=== PATIENT | male | born 1970 | race Caucasian/White ===

== ENCOUNTER 2025-06-10 15:59 | Inpatient (IN) | payer MEDICARE, MEDICAID ==
[~2025-06-10] VITALS: Ht 188 cm; Wt 130.6 kg
[~2025-06-10 15:59] MED LIST: LISI-893 PO; OLAN10TA74 PO; PANT-31 PO; QUET200T PO; SIMV-261 PO
[2025-06-10 21:37] VITALS: BP 108/80; PULSE 89; RESP 16; TEMP 98.4; O2SAT 100
[2025-06-10] MEDS ORDERED: INFLUENZA VIRUS VACCINE TVS (6MO+) 2025-26/PF 45 MCG/0.5 ML SYRINGE IM. ONE (22:15)
[2025-06-11 08:55] LABS: PLATELET COUNT (AUTO) 200 K/uL (150-450); RED BLOOD CELL COUNT(AUTO) 5.33 MIL/uL (4.50-5.90); RED CELL DISTRIBUTION WIDTH 14.1 % (11.5-14.5); WHITE BLOOD COUNT (AUTO) 5.9 K/uL (4.5-11.0)
[2025-06-11 09:02] VITALS: BP 139/96; PULSE 75; RESP 19; TEMP 97.5; O2SAT 95
[2025-06-11 09:15] LABS: ASPARTATE AMINOTRANSFERASE 17 U/L (15-37); CALCIUM, TOTAL 8.3 mg/dL (8.8-10.5); CHOL/HDL RATIO 5.3 (4.2-7.3); CREATININE 0.70 mg/dL (0.60-1.30); GLOMERULAR FILTR. RATE CALC > 60 mL/min (>60); GLUCOSE,RANDOM 89 mg/dL (70-110); LDL CHOL (CALC.) 115 mg/dL (0-130); SODIUM SERUM 139 mmol/L (136-145); TOTAL PROTEIN, SERUM 6.6 g/dL (6.4-8.2); UREA NITROGEN, BLOOD 16 mg/dL (7-18)
[2025-06-11] MEDS: NICOTINE POLACRILEX 2 MG LOZENGE PO PRN ×2 (10:16→14:01)
[2025-06-11] MEDS ORDERED: GuaiFENesin/D-METHORPHAN [SUGAR-FREE] 200-20MG/10 ML SYRUP UDCUP PO PRN (11:00)
[2025-06-11] MEDS ORDERED: LOPERAMIDE HCL 2 MG CAPSULE PO PRN (11:00)
[2025-06-11] MEDS ORDERED: ACETAMINOPHEN 325 MG TABLET PO PRN (11:00)
[2025-06-11] MEDS ORDERED: PETROLATUM,WHITE 28 GM JELLY TP PRN (11:00)
[2025-06-11] MEDS ORDERED: ONDANSETRON 4 MG TABLET PO PRN (11:00)
[2025-06-11] MEDS ORDERED: MAGNESIUM HYDROXIDE SUSPENSION 30 ML UDCUP PO PRN (11:00)
[2025-06-11] MEDS ORDERED: ALBUTEROL SULFATE HFA 90 MCG/PUFF 8 GM INHALER IH PRN (11:00)
[2025-06-11] MEDS ORDERED: DOCUSATE SODIUM 100 MG CAPSULE PO PRN (11:00)
[2025-06-11] MEDS ORDERED: IBUPROFEN 400 MG TABLET PO PRN (11:00)
[2025-06-11] MEDS ORDERED: MAG HYDROX/ALUMINUM HYD/SIMETH ES 30 ML SUSPENSION UDCUP PO PRN (11:00)
[2025-06-11] MEDS: PANTOPRAZOLE SODIUM 40 MG DR TABLET PO SCH (14:01)
[2025-06-11 20:37] VITALS: BP 113/81; PULSE 80; RESP 18; TEMP 97.7; O2SAT 98
[2025-06-11] MEDS: SIMVASTATIN 40 MG TABLET PO SCH (22:14)
[2025-06-11] MEDS: ZOLPIDEM TARTRATE 10 MG TABLET PO PRN (22:15)
[2025-06-12 08:59] VITALS: BP 127/98; PULSE 89; RESP 17; TEMP 98.3; O2SAT 96
[2025-06-12 09:45] LABS: APPEARANCE,URINE HAZY (CLEAR); GLUCOSE, URINE (UA) NEGATIVE (NEGATIVE); LEUKOCYTE ESTERASE ,URINE NEGATIVE (NEGATIVE); NITRATE,URINE NEGATIVE (NEGATIVE); OCCULT BLOOD,URINE NEGATIVE (NEGATIVE); SPECIFIC GRAVITIY, URINE 1.012 (1.003-1.030)
[2025-06-12 09:55] LABS: ALCOHOL, URINE DRUG SCREEN NEGATIVE (NEGATIVE); AMPHET/METH SCREEN,URINE NEGATIVE (NEGATIVE); BARBITURATE SCREEN, URINE NEGATIVE (NEGATIVE); CANNABINOID SCREEN,URINE NEGATIVE (NEGATIVE); COCAINE SCREEN,URINE NEGATIVE (NEGATIVE); METHADONE SCREEN, URINE NEGATIVE (NEGATIVE)
[2025-06-12 10:10] LABS: PH,URINE DRUG SCREEN 7.5 (5.0-8.0)
[2025-06-12] MEDS: PANTOPRAZOLE SODIUM 40 MG DR TABLET PO SCH (10:56)
[2025-06-12 20:32] VITALS: RESP 17
[2025-06-13 09:02] VITALS: BP 108/67; PULSE 83; RESP 18; TEMP 98.2; O2SAT 95
[2025-06-13 20:24] VITALS: BP 111/64; PULSE 87; RESP 17; TEMP 97.9; O2SAT 96
[2025-06-14 08:49] VITALS: BP 110/59; PULSE 82; RESP 18; TEMP 98.1; O2SAT 97
[2025-06-14 20:30] VITALS: BP 85/69; PULSE 99; RESP 18; TEMP 97.9; O2SAT 98
[2025-06-15 08:50] VITALS: BP 126/33; PULSE 88; RESP 16; TEMP 97.7; O2SAT 96
[2025-06-15 20:33] VITALS: BP 113/77; PULSE 88; RESP 18; TEMP 97.9; O2SAT 97
[2025-06-16 08:13] VITALS: BP 115/65; PULSE 80; RESP 16; TEMP 97.7; O2SAT 98
[2025-06-16 20:21] VITALS: BP 120/89; PULSE 95; RESP 18; TEMP 97.7; O2SAT 95
[2025-06-17 08:24] VITALS: BP_SYST 110; BP_SYST 144; BP_DIAS 66; BP_DIAS 92; PULSE 84; RESP 17; RESP 18; TEMP 97.8; TEMP 98.3; O2SAT 97; O2SAT 98
[2025-06-17] MEDS ORDERED: HALO10TA21 PO (10:28)
[2025-06-17] MEDS ORDERED: LISI-894 PO (10:31)
[2025-06-17] MEDS ORDERED: TRAZ-257 PO (10:35)
== END 2025-06-17 12:46 | disposition home or self-care (01) | DRG 885 ==
LOC: B2X 20:37
PROVIDERS: ADMIT Psychiatry & Neurology Child & Adolescent Psychiatry; ATTEND Psychiatry & Neurology Child & Adolescent Psychiatry
PROC: GZ58ZZZ Individual Psychotherapy, Cognitive-Behavioral (ICD-10-PCS; principal; 2025-06-11)
PROC: GZ56ZZZ Individual Psychotherapy, Supportive (ICD-10-PCS; 2025-06-11)
DX: F25.1 Schizoaffective disorder, depressive type (principal); E78.5 Hyperlipidemia, unspecified; I10 Essential (primary) hypertension; J44.9 Chronic obstructive pulmonary disease, unspecified; F10.10 Alcohol abuse, uncomplicated
CPT/HCPCS: 80053; 80061; 80307; 81003; 83036; 84439; 85025; 90686